=== PATIENT | female | born 1995 | race Caucasian/White ===

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

== ENCOUNTER 2019-06-01 13:54 | Emergency (ER) | payer OTHER ==
[~2019-06-01] VITALS: Ht 162.6 cm; Wt 51.7 kg
[2019-06-01 14:03] VITALS: BP 129/81; Ht 162.6 cm; Wt 51.7 kg
== END 2019-06-01 14:07 | disposition left against medical advice (07) ==
LOC: ED 13:54
DX: Z53.21 Procedure and treatment not carried out due to patient leaving prior to being seen by health care provider (principal)